=== PATIENT | female | born 1980 | race Caucasian/White ===

== ENCOUNTER 2021-09-15 10:27 | Emergency (ER) | payer SELFPAY ==
[~2021-09-15] VITALS: Ht 167.6 cm; Wt 83.0 kg
[2021-09-15] MEDS ORDERED: HYDROCODONE/ACETAMINOPHEN 5/325MG TABLET PO ONE (11:15)
[2021-09-15 11:56] VITALS: BP 134/103
[2021-09-15] MEDS ORDERED: NAPR-681 MT (12:38)
== END 2021-09-15 18:26 ==
LOC: ER 10:36
DX: S06.890A Other specified intracranial injury without loss of consciousness, initial encounter (principal); M25.562 Pain in left knee; Y08.89XA Assault by other specified means, initial encounter; Y93.89 Activity, other specified; Y92.89 Other specified places as the place of occurrence of the external cause; Y99.8 Other external cause status
CPT/HCPCS: 73562; 99283